=== PATIENT | male | born 1960 | race Caucasian/White ===

== ENCOUNTER 2016-07-19 16:27 | Emergency (ER) | payer MEDICAID ==
[2016-07-19 16:36] VITALS: RESP 16
--- NOTE | 2016-07-19 17:24 | EDPHY ---
H & P Time Seen by Provider: 07/19/16 16:48 HPI/ROS: CHIEF COMPLAINT: Right knee pain and swelling HISTORY OF PRESENT ILLNESS: Patient is a 56-year-old gentleman who presents emergency department with right knee pain. Patient had knee replacement surgery 1.5 months ago. He uses a cane because he has gait issues. 2 days ago he stubbed his left toe which caused him to slammed down his right foot. Since that time he has had right medial knee pain. Also noted swelling surrounding his right knee. His pain is worse with movement. He denies fevers or chills. He states he is out of pain medication. REVIEW OF SYSTEMS: My complete review of systems is negative except as mentioned in the HPI. Past Medical/Surgical History: Chronic pain, psychiatric disorder, peripheral neuropathy Smoking Status: Never smoked Physical Exam: Vitals noted GENERAL: Well-appearing, in no acute distress, alert. HEENT: Eyes normal to inspection, normal pharynx, no signs of dehydration. NECK: No thyromegaly, no lymphadenopathy, supple. RESPIRATORY: Clear to auscultation bilaterally, no rales, rhonchi or wheezing. CVS: Regular rate and rhythm, no rubs, murmurs, or gallops. ABDOMEN: Soft, nontender, nondistended, no organomegaly. BACK: Normal to inspection, no CVA tenderness. SKIN: Normal color, no rash, warm, dry. No pallor. EXTREMITIES: patient has a surgical incision over his right knee. This incision is healing well. Patient has moderate swelling surrounding his right knee. There is mild medial tenderness to palpation. No patellar tenderness. There is no erythema, warmth or streaking up the leg. NEURO/PSYCH: [Alert and oriented x3, normal mood and affect, normal motor sensory exam. No obvious cranial nerve deficit. Constitutional: Initial Vital Signs Temperature (C) 37.3 C 07/19/16 16:32 Heart Rate 83 07/19/16 16:32 Respiratory Rate 16 07/19/16 16:32 Blood Pressure 104/88 H 07/19/16 16:32 O2 Sat (%) 92 07/19/16 16:32 O2 Delivery Mode Room Air Allergies/Adverse Reactions: No Known Allergies Allergy (Verified 02/04/16 16:58) Home Medications: Medication Instructions Recorded Cetirizine [ZyrTEC 10 mg (*)] 10 mg PO DAILY 02/04/16 Pregabalin [LYRICA] 225 mg PO BID 02/04/16 carBAMazepine [TEGretol (*)] 200 mg PO DAILY 02/04/16 traZODone [traZODONE 100MG (*)] 100 mg PO HS PRN 02/04/16 carBAMazepine [TEGretol (*)] 400 mg PO HS 02/05/16 Methocarbamol [Robaxin 750 mg (*)] 750 mg PO TID #60 tab 02/13/16 Morphine Sulfate [Ms Contin] 15 mg PO BID #60 tablet.er 02/13/16 oxyCODONE IR [Oxycodone Ir (*)] 5 mg PO Q6 PRN #30 tab 02/13/16 oxyCODONE/APAP 5/325 [Percocet 1 - 2 tab PO Q4PRN PRN #11 tab 07/19/16 5/325 (*)] Medical Decision Making - Diagnostics Imaging Results: Imaging Impressions Knee X-Ray 07/19/16 17:35 Impression: No acute findings in the knee. ED Course/Re-evaluation: In the emergency department I discussed possible etiologies with the patient. X -ray of his right knee was ordered. The patient was given oral pain medication. X-ray right knee: Please refer the dictated report. No acute abnormality. I discussed the findings with the patient. He will follow up with Orthopedics. He was given a prescription of 11 tablets of Percocet. He was given crutches to help with his ambulation.. Differential Diagnosis: My differential includes but is not limited to fracture, dislocation, contusion , abrasion, bursitis - Data Points Medications Given: Discontinued Medications Oxycodone/Acetaminophen (Percocet 5/325) 2 tab PO EDNOW ONE Stop: 07/19/16 17:46 Last Admin: 07/19/16 18:03 Dose: 2 tab Departure - Departure Disposition: Home, Routine, Self-Care Clinical Impression: Knee pain, acute Qualifiers: Laterality: right Qualified Code(s): M25.561 - Pain in right knee Condition: Good Instructions: Knee Pain (ED) Additional Instructions: Return with increasing pain, swelling, fever, or any other concerns. You need close follow-up with the orthopedic surgeon. Referrals: Aparna Malhotra MD [Primary Care Provider] - 2-3 days without fail Janeen Parnell [Other] - As per Instructions Prescriptions: oxyCODONE/APAP 5/325 [Percocet 5/325 (*)] 1 - 2 tab PO Q4PRN PRN #11 tab PRN Reason: For Moderate To Severe Pain
[2016-07-19] MEDS ORDERED: OXYCODONE/APAP 5/325 TAB ONE ×2 (17:35)
[2016-07-19] MEDS ORDERED: OXYCODONE/APAP 5/325 TAB PO ONE (17:45)
[2016-07-19 19:26] VITALS: BP 119/69; PULSE 79; TEMP 98.6; O2SAT 91
== END 2016-07-19 19:24 | disposition home or self-care (01) ==
DX: M25.561 Pain in right knee (principal)

== ENCOUNTER 2017-02-25 13:06 | Emergency (ER) | payer MEDICAID ==
[2017-02-25 13:19] VITALS: O2SAT 95
[2017-02-25] MEDS ORDERED: LET GEL TOPICAL 1 EA SYR TP ONE (14:22)
[2017-02-25] MEDS ORDERED: SULFAMETHOX/TMP 800/160 MG 1 TAB PO ONE (15:43)
[2017-02-25] MEDS ORDERED: CEPHALEXIN 500 MG CAP PO ONE (15:43)
--- NOTE | 2017-02-25 15:47 | EDPHY ---
H & P Stated Complaint: lump on R arm HPI/ROS: HPI: This is a 56-year-old male presents with Chief Complaint: lump on R arm Location: Right axilla Quality: Lump Duration: 3-4 days Signs and Symptoms: No bleeding, no radiation, no numbness, no weakness, no tingling, no decreased range of motion, + swelling, + redness, + pain Timing: Worsening Severity: Moderate Context: Patient reports that over the last 3-4 days he has noticed a small right under his right armpit with worsening surrounding erythema and pain. Denies injury/insect bite/history MRSA/DM. No prior history of hidradenitis suppurative. He has tried nothing for the symptoms. He called his primary care provider on Tuesday and has a follow-up appointment this Tuesday. Modifying Factors: None Comment: ROS: see HPI Constitutional: No fever, no chills, no weight loss Eyes: No blurred vision Respiratory: No shortness of breath, no cough Cardiovascular: No chest pain Gastrointestinal: No nausea, no vomiting no diarrhea Genitourinary: No dysuria Extremities: No myalgias Neurologic: No weakness, no numbness Skin: No rashes Hematologic: No bruising, no bleeding MEDICAL/SURGICAL/SOCIAL HISTORY: Medical history: 1. R hip & Knee 2. chronic pain 3. Psychiatric disorder, unspecified 4. Peripheral neuropathy Surgical history: Denies Social history: Unemployed. CONSTITUTIONAL: Pleasant nontoxic appearance adult white male, awake and alert , no obvious distress HEENT: Atraumatic and normocephalic, PERRL, EOMI. Tympanic membranes clear. Oropharynx clear, no exudate and moist pink mucosa. Airway patent. No lymphadenopathy. No meningismus. Cardiovascular: Normal S1/S2, regular rate, regular rhythm, without murmur rub or gallop. PULMONARY/CHEST: Symmetrical and nontender. Clear to auscultation bilaterally. Good air movement. No accessory muscle usage. ABDOMEN: Soft, nondistended, nontender, no rebound, no guarding, no peritoneal signs, no masses or organomegaly. No CVAT. EXTREMITIES: 2/2 pulses, RIGHT SHOULDER: Arc test abduction to 180, adduction to 45, horizontal flexion 130, horizontal extension to 45, deltoid strength 5/5. NO Tenderness to palpation over AC joint. strength 5/5, no deformities, no clubbing, no cyanosis or edema. NEUROLOGICAL: no focal neuro deficits. GCS 15. SKIN: Warm and dry, 6 cm annular red indurated area inferior to the right axillary area; fluctuant area noted approximately 2 cm in circumference.no rash. Good capillary refill. Source: Patient Exam Limitations: No limitations - Personal History Current Tetanus Diphtheria and Acellular Pertussis (TDAP): Unsure - Medical/Surgical History Hx Asthma: No Hx Chronic Respiratory Disease: No Hx Diabetes: No Hx Cardiac Disease: No Hx Renal Disease: No Hx Cirrhosis: No Hx Alcoholism: No Hx HIV/AIDS: No Hx Splenectomy or Spleen Trauma: No Other PMH: 1. R hip & Knee. 2. chronic pain. 3. Psychiatric disorder, unspecified. 4. Peripheral neuropathy - Social History Smoking Status: Never smoked Constitutional: Initial Vital Signs Temperature (C) 37 C 02/25/17 13:17 Heart Rate 84 02/25/17 13:17 Respiratory Rate 16 02/25/17 13:17 Blood Pressure 102/69 02/25/17 13:17 O2 Sat (%) 95 02/25/17 13:17 O2 Delivery Mode Room Air Allergies/Adverse Reactions: No Known Allergies Allergy (Verified 02/04/16 16:58) Home Medications: Medication Instructions Recorded Cetirizine [ZyrTEC 10 mg (*)] 10 mg PO DAILY 02/04/16 Pregabalin [LYRICA] 225 mg PO BID 02/04/16 carBAMazepine [TEGretol (*)] 200 mg PO DAILY 02/04/16 traZODone [traZODONE 100MG (*)] 100 mg PO HS PRN 02/04/16 carBAMazepine [TEGretol (*)] 400 mg PO HS 02/05/16 Methocarbamol [Robaxin 750 mg (*)] 750 mg PO TID #60 tab 02/13/16 Morphine Sulfate [Ms Contin] 15 mg PO BID #60 tablet.er 02/13/16 oxyCODONE IR [Oxycodone Ir (*)] 5 mg PO Q6 PRN #30 tab 02/13/16 oxyCODONE/APAP 5/325 [Percocet 1 - 2 tab PO Q4PRN PRN #11 tab 07/19/16 5/325 (*)] Cephalexin [Keflex (*)] 500 mg PO TID #21 cap 02/25/17 Sulfamethox/Tmp 800/160 mg 1 tab PO BID #14 tab 02/25/17 [Bactrim Ds] Medical Decision Making Procedures: Procedure: Abscess drainage. The patient's abscess was located on the inferior portion of the right axillary region. I obtained verbal consent from the patient to drain the abscess who was informed about the possibility of bleeding and pain. The abscess was incised with # 11 scalpel and a 20 amount of purulent drainage was expressed. I irrigated the wound and placed some packing. ABD and paper tape used as clean sterile dressing. The patient tolerated the procedure well. The procedure was performed by myself. ED Course/Re-evaluation: Abscess was I and D with approximately 20 mL of purulent discharge; sent for wound culture. Given Keflex and Bactrim Patient has follow-up appointment Tuesday with PCP at which time he can have wound check and packing replaced. Differential Diagnosis: Differential diagnosis includes but is not limited to cellulitis, abscess. - Data Points Medications Given: Discontinued Medications Cephalexin HCl (Keflex) 500 mg PO EDNOW ONE PRN Reason: Protocol Stop: 02/25/17 15:44 Last Admin: 02/25/17 16:00 Dose: 500 mg Tetracaine/Epinephrine/Lidocaine (Let Gel Topical) 1 ea TP EDNOW ONE Stop: 02/25/17 14:23 Last Admin: 02/25/17 14:27 Dose: 1 ea Trimethoprim/Sulfamethoxazole (Bactrim Ds) 1 ea PO EDNOW ONE PRN Reason: Protocol Stop: 02/25/17 15:44 Last Admin: 02/25/17 16:00 Dose: 1 ea Departure - Departure Disposition: Home, Routine, Self-Care Clinical Impression: Abscess of right axilla Condition: Good Instructions: Wound Healing and Your Diet (ED), Abscess (ED), Warm Compress or Soak (ED) Additional Instructions: Keep the packing and dressing in place and dry until seen by primary care provider. Take Keflex and Bactrim as directed until complete. Referrals: Aparna Malhotra MD [Primary Care Provider] - 02/28/17 Prescriptions: Cephalexin [Keflex (*)] 500 mg PO TID #21 cap Sulfamethox/Tmp 800/160 mg [Bactrim Ds] 1 tab PO BID #14 tab
[2017-02-25 16:18] VITALS: BP 113/76; PULSE 67; RESP 17; TEMP 98.4
== END 2017-02-25 16:22 | disposition home or self-care (01) ==
PROC: 0H9BXZZ Drainage of Right Upper Arm Skin, External Approach (ICD-10-PCS; principal; 2017-02-25)
DX: L02.411 Cutaneous abscess of right axilla (principal)

== ENCOUNTER 2017-11-08 | Day surgery (SDC) | payer MEDICAID | END 2017-11-08 13:33 | disposition home or self-care (01) | PROC: 0DB58ZX Excision of Esophagus, Via Natural or Artificial Opening Endoscopic, Diagnostic (ICD-10-PCS; principal; 2017-11-08) | DX: K22.70 Barrett's esophagus without dysplasia (principal) ==